=== PATIENT | male | born 1985 | race Caucasian/White ===

== ENCOUNTER 2018-07-20 17:20 | Emergency (ER) | payer OTHER ==
[~2018-07-20] VITALS: Ht 180.3 cm; Wt 65.8 kg
[~2018-07-20 17:20] MED LIST: BACTROBAN CREAM30 G1 TOP; FLEXERIL PO; HYDROCODONE-AP1 EAC6 PO; HYDROXYZINE HCL25 M1 PO; IBUPROFEN200 M1 PO; PERCOCET 5-3251 EACH PO; UNKNOWN ANTIBIOTIC
[2018-07-20 18:08] LABS: ABSOLUTE EOSINOPHILS 0.2 thou/uL (0.0-0.7); ABSOLUTE LYMPHOCYTES 1.9 thou/uL (0.8-5.3); ABSOLUTE MONOCYTES 0.6 thou/uL (0.0-1.2); ABSOLUTE NEUTROPHILS 3.6 thou/uL (1.6-8.1); BASOPHILS 0.5 %; EOSINOPHILS 3.5 %; HEMATOCRIT 46.2 % (42.0-52.0); HEMOGLOBIN 15.4 gm/dL (14.0-18.0); LYMPHOCYTES 29.6 %; MCH 31.4 pg (26.0-34.0); MCHC 33.3 g/dL (28.0-37.0); MCV 94.2 fL (80.0-100.0); MONOCYTES 9.1 %; MPV 7.6 fl. (7.2-11.1); NUCLEATED RBCS 0 /100WBC; PLATELET COUNT* 268 thou/uL (150-400); POLYS 57.3 %; RBC 4.91 mil/uL (4.50-6.00); RDW-CV 13.5 % (10.5-14.5); WBC 6.3 thou/uL (4.0-11.0)
[2018-07-20 18:18] LABS: ANION GAP 6 mmol/L (7-16); BUN 12 mg/dL (7-18); CALCIUM 9.2 mg/dL (8.5-10.1); CHLORIDE 103 mmol/L (98-107); CO2 29 mmol/L (21-32); GLUCOSE 96 mg/dL (70-99); POTASSIUM 3.9 mmol/L (3.5-5.1); SODIUM 138 mmol/L (136-145)
[2018-07-20 18:29] LABS: TROPONIN-I LEVEL <0.06 ng/mL (<0.06)
[2018-07-20 18:30] LABS: ALBUMIN 3.8 g/dL (3.4-5.0); ALKALINE PHOSPHATASE 69 U/L (46-116); LIPASE 70 U/L (73-393); NT-PRO BRAIN NAT PEPTIDE 28 pg/mL (<300); SGOT 22 U/L (15-37); SGPT 31 U/L (30-65); TOTAL BILIRUBIN 0.5 mg/dL (<0.1-1.0); TOTAL PROTEIN 7.5 g/dL (6.4-8.2)
[2018-07-20 19:10] VITALS: BP 121/62
--- NOTE | 2018-07-21 09:00 | EKG ---
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: Kathleen CELESTE : 1985 Requested By: Ham Mazariegos Order Number: [id number] MD: [place]ardo Lazo Measurements Intervals [place] Rate: 49 P: 19 MI: 146 QRS: 83 QRSD: 100 T: 57 QT: 382 QTc: 345 Interpretive Statements Sinus bradycardia Compared to ECG 02/12/2017 15:31:18 Sinus rhythm no longer present Electronically Signed On 07-21-2018 9:00:39 HEARING HEALTH TECHNICIAN by [place]ardo Lazo [email or web address] <ELECTRONICALLY SIGNED> By: Bernardo Lazo MD, [facility] 07/21/18 0900 1726 25 Bernardo Lazo MD, FACC /EPI
== END 2018-07-20 19:10 | disposition home or self-care (01) ==
LOC: M.ERS 17:20
PROVIDERS: Emergency Medicine
DX: R07.89 Other chest pain (principal); F90.9 Attention-deficit hyperactivity disorder, unspecified type; F41.9 Anxiety disorder, unspecified; F32.9 Major depressive disorder, single episode, unspecified; F17.210 Nicotine dependence, cigarettes, uncomplicated; Z88.5 Allergy status to narcotic agent

== ENCOUNTER 2018-10-06 18:25 | Emergency (ER) | payer OTHER ==
[~2018-10-06] VITALS: Ht 180.3 cm; Wt 70.3 kg
[2018-10-06 20:29] VITALS: BP 106/64
== END 2018-10-06 20:29 | disposition home or self-care (01) ==
LOC: M.ERS 18:25
DX: S62.310A Displaced fracture of base of second metacarpal bone, right hand, initial encounter for closed fracture (principal); F41.9 Anxiety disorder, unspecified; F32.9 Major depressive disorder, single episode, unspecified; F17.210 Nicotine dependence, cigarettes, uncomplicated; Z88.5 Allergy status to narcotic agent; W22.8XXA Striking against or struck by other objects, initial encounter; Y93.44 Activity, trampolining; Y92.89 Other specified places as the place of occurrence of the external cause; Y99.8 Other external cause status

== ENCOUNTER 2019-01-25 16:09 | Emergency (ER) | payer OTHER ==
[~2019-01-25] VITALS: Ht 172.7 cm; Wt 70.3 kg
[2019-01-25 16:43] LABS: ABSOLUTE EOSINOPHILS 0.2 thou/uL (0.0-0.7); ABSOLUTE LYMPHOCYTES 1.6 thou/uL (0.8-5.3); ABSOLUTE MONOCYTES 0.6 thou/uL (0.0-1.2); ABSOLUTE NEUTROPHILS 4.4 thou/uL (1.6-8.1); BASOPHILS 0.4 %; EOSINOPHILS 2.8 %; HEMOGLOBIN 14.6 gm/dL (14.0-18.0); LYMPHOCYTES 23.2 %; MCH 31.5 pg (26.0-34.0); MCV 92.6 fL (80.0-100.0); MONOCYTES 9.4 %; MPV 7.9 fl. (7.2-11.1); NUCLEATED RBCS 0 /100WBC; PLATELET COUNT* 252 thou/uL (150-400); POLYS 64.2 %; RBC 4.64 mil/uL (4.50-6.00); RDW-CV 13.9 % (10.5-14.5); WBC 6.8 thou/uL (4.0-11.0)
[2019-01-25 16:51] LABS: ANION GAP 6 mmol/L (7-16); BUN 12 mg/dL (7-18); CALCIUM 8.7 mg/dL (8.5-10.1); CHLORIDE 106 mmol/L (98-107); CO2 30 mmol/L (21-32); CREATININE 1.1 mg/dL (0.6-1.3); GLUCOSE 102 mg/dL (70-99); POTASSIUM 3.8 mmol/L (3.5-5.1); SODIUM 142 mmol/L (136-145)
[2019-01-25 17:02] LABS: ALBUMIN 3.5 g/dL (3.4-5.0); ALKALINE PHOSPHATASE 60 U/L (46-116); LIPASE 54 U/L (73-393); NT-PRO BRAIN NAT PEPTIDE 32 pg/mL (<300); SGOT 15 U/L (15-37); SGPT 20 U/L (30-65); TOTAL BILIRUBIN 0.4 mg/dL (<0.1-1.0); TOTAL PROTEIN 6.9 g/dL (6.4-8.2); TROPONIN-I LEVEL <0.06 ng/mL (<0.06)
[2019-01-25 18:45] VITALS: BP 104/40
--- NOTE | 2019-01-26 12:34 | EKG ---
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
== END 2019-01-25 18:47 ==
LOC: M.ERS 16:09
PROVIDERS: Emergency Medicine
DX: R07.89 Other chest pain (principal); R11.2 Nausea with vomiting, unspecified; F90.9 Attention-deficit hyperactivity disorder, unspecified type; F41.9 Anxiety disorder, unspecified; F32.9 Major depressive disorder, single episode, unspecified; F17.210 Nicotine dependence, cigarettes, uncomplicated; Z88.5 Allergy status to narcotic agent

== ENCOUNTER 2019-03-10 18:27 | Emergency (ER) | payer OTHER ==
[~2019-03-10] VITALS: Ht 180.3 cm; Wt 70.3 kg
[2019-03-10 18:58] LABS: ABSOLUTE EOSINOPHILS 0.2 thou/uL (0.0-0.7); ABSOLUTE LYMPHOCYTES 2.2 thou/uL (0.8-5.3); ABSOLUTE MONOCYTES 0.4 thou/uL (0.0-1.2); ABSOLUTE NEUTROPHILS 1.9 thou/uL (1.6-8.1); BASOPHILS 0.8 %; EOSINOPHILS 4.1 %; HEMATOCRIT 43.7 % (42.0-52.0); HEMOGLOBIN 14.9 gm/dL (14.0-18.0); LYMPHOCYTES 46.2 %; MCH 31.9 pg (26.0-34.0); MCHC 34.1 g/dL (28.0-37.0); MCV 93.6 fL (80.0-100.0); MONOCYTES 9.1 %; MPV 7.4 fl. (7.2-11.1); NUCLEATED RBCS 0 /100WBC; PLATELET COUNT* 295 thou/uL (150-400); POLYS 39.8 %; RBC 4.67 mil/uL (4.50-6.00); RDW-CV 13.5 % (10.5-14.5); WBC 4.8 thou/uL (4.0-11.0)
[2019-03-10 19:06] LABS: ANION GAP 9 mmol/L (7-16); BUN 7 mg/dL (7-18); CALCIUM 8.4 mg/dL (8.5-10.1); CHLORIDE 103 mmol/L (98-107); CO2 26 mmol/L (21-32); CREATININE 1.1 mg/dL (0.6-1.3); GLUCOSE 86 mg/dL (70-99); POTASSIUM 3.9 mmol/L (3.5-5.1); SODIUM 138 mmol/L (136-145)
[2019-03-10 19:07] LABS: INR 1.3
[2019-03-10 19:15] LABS: ALBUMIN 3.4 g/dL (3.4-5.0); ALKALINE PHOSPHATASE 68 U/L (46-116); LIPASE 52 U/L (73-393); SGOT 16 U/L (15-37); SGPT 16 U/L (30-65); TOTAL BILIRUBIN 0.4 mg/dL (<0.1-1.0); TOTAL PROTEIN 6.8 g/dL (6.4-8.2); TROPONIN-I LEVEL <0.06 ng/mL (<0.06)
[2019-03-10] MEDS ORDERED: VISTARIL 25 MG25 M1 PO (21:09)
[2019-03-10 21:24] VITALS: BP 102/62
--- NOTE | 2019-03-11 12:29 | EKG ---
[place] [address] ELECTROCARDIOGRAM REPORT Name: BHAVESH BAEZA JR Room: [facility]#: [id number] Admission: 03/10/19 Attend Phys: Discharge: 03/10/19 Date of : [birth year] Report #: [id number] THIS REPORT FOR: //name// [facility] ED Test Date: 2019-03-10 Test Time: 18:32:45 Pat Name: BHAVESH BAEZA Department: Room: Gender: M Director State Pharmacy: : 1985 Requested By: iD Piña Order Number: [id number] MD: Isiah Sanchez Measurements Intervals [place] Rate: 70 P: 44 NC: 144 QRS: 86 QRSD: 94 T: 53 QT: 369 QTc: 399 Interpretive Statements Sinus rhythm Baseline wander in lead(s) V4 Compared to ECG 01/25/2019 16:13:25 No significant changes Electronically Signed On 03-11-2019 12:29:15 CDT by Isiah Sanchez [email or web address] <ELECTRONICALLY SIGNED> By: Isiah Sanchez MD, [facility] 03/11/19 1229 31 31 Isiah Sanchez MD, FACC /EPI
--- NOTE | 2019-03-11 12:30 | EKG ---
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: : 1985 Requested By: Di Piña Order Number: [id number] MD: Isiah Sanchez Measurements Intervals [place] Rate: 51 P: 39 [place]: 148 QRS: 81 QRSD: 92 T: 68 QT: 417 QTc: 385 Interpretive Statements Sinus rhythm ST elev, probable normal early repol pattern Compared to ECG 01/25/2019 16:13:25 ST (T wave) deviation now present Electronically Signed On 03-11-2019 12:29:59 CDT by Isiah Sanchez [email or web address] <ELECTRONICALLY SIGNED> By: Isiah Sanchez MD, [facility] 03/11/19 1229 37 37 Isiah Sanchez MD, FAC /EPI
== END 2019-03-10 21:27 ==
LOC: M.ERS 18:27
PROVIDERS: Personal Emergency Response Attendant
DX: F41.9 Anxiety disorder, unspecified (principal); F17.210 Nicotine dependence, cigarettes, uncomplicated; F32.9 Major depressive disorder, single episode, unspecified; F90.9 Attention-deficit hyperactivity disorder, unspecified type; Z88.8 Allergy status to other drugs, medicaments and biological substances

== ENCOUNTER 2019-07-08 11:12 | Emergency (ER) | payer OTHER ==
[~2019-07-08] VITALS: Ht 180.3 cm; Wt 70.3 kg
[~2019-07-08 11:12] MED LIST changes: +VISTARIL 25 MG25 M1 PO
[2019-07-08 11:39] LABS: ABSOLUTE EOSINOPHILS 0.1 thou/uL (0.0-0.7); ABSOLUTE LYMPHOCYTES 1.6 thou/uL (0.8-5.3); ABSOLUTE MONOCYTES 0.4 thou/uL (0.0-1.2); ABSOLUTE NEUTROPHILS 1.6 thou/uL (1.6-8.1); BASOPHILS 1.1 %; EOSINOPHILS 3.8 %; HEMATOCRIT 43.7 % (42.0-52.0); HEMOGLOBIN 14.6 gm/dL (14.0-18.0); LYMPHOCYTES 41.2 %; MCH 31.5 pg (26.0-34.0); MCHC 33.4 g/dL (28.0-37.0); MCV 94.3 fL (80.0-100.0); MONOCYTES 10.9 %; MPV 7.8 fl. (7.2-11.1); NUCLEATED RBCS 0 /100WBC; PLATELET COUNT* 295 thou/uL (150-400); RBC 4.63 mil/uL (4.50-6.00); RDW-CV 13.6 % (10.5-14.5); WBC 3.8 thou/uL (4.0-11.0)
[2019-07-08 12:12] LABS: CALCIUM 7.8 mg/dL (8.5-10.1); CREATININE 0.8 mg/dL (0.6-1.3); POTASSIUM 4.2 mmol/L (3.5-5.1)
[2019-07-08 12:23] LABS: ALBUMIN 3.1 g/dL (3.4-5.0); MAGNESIUM 1.7 mg/dL (1.8-2.4); TOTAL BILIRUBIN 0.6 mg/dL (<0.1-1.0); TOTAL PROTEIN 6.9 g/dL (6.4-8.2)
[2019-07-08] MEDS ORDERED: CARAFATE1 GM PO (13:40)
[2019-07-08 13:59] VITALS: BP 105/58
--- NOTE | 2019-07-08 16:18 | EKG ---
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 07/08/19 1617 14 Bernardo Lazo MD, FACC /EPI
--- NOTE | 2019-07-08 16:20 | EKG ---
[place] [address] ELECTROCARDIOGRAM REPORT Name: BHAVESH BAEZA JR Room: [facility]#: [id number] Admission: 07/08/19 Attend Phys: Discharge: 07/08/19 Date of : [birth year] Report #: [id number] THIS REPORT FOR: //name// [facility] ED Test Date: 2019-07-08 Test Time: 13:18:22 Pat Name: BHAVESH BAEZA Department: Room: Gender: M Delinquent Notice Machine Operator: JODI : 1985 Requested By: Brian Cid Order Number: [id number] MD: [place]ardo Lazo Measurements Intervals [place] Rate: 46 P: 17 DE: 160 QRS: 82 QRSD: 96 T: 56 QT: 426 QTc: 373 Interpretive Statements Sinus bradycardia artifact noted ST elev, probable normal early repol pattern Electronically Signed On 07-08-2019 16:19:24 MOSAIC TILE MAKER by [place]ardo Lazo [email or web address] <ELECTRONICALLY SIGNED> By: Bernardo Lazo MD, [facility] 07/08/19 1619 1318 1318 Bernardo Lazo MD, FACC /EPI
== END 2019-07-08 14:00 ==
LOC: M.ERS 11:12
PROVIDERS: Emergency Medicine Emergency Medical Services
DX: R07.89 Other chest pain (principal); F17.210 Nicotine dependence, cigarettes, uncomplicated; Z88.5 Allergy status to narcotic agent

== ENCOUNTER 2020-03-23 05:20 | Emergency (ER) | payer OTHER ==
[~2020-03-23 05:20] MED LIST changes: +CARAFATE1 GM PO
== END 2020-03-23 06:41 ==
LOC: M.ERS 05:20
DX: Z02.89 Encounter for other administrative examinations (principal)

== ENCOUNTER 2020-05-13 23:32 | Emergency (ER) | payer OTHER ==
[~2020-05-13] VITALS: Ht 180.3 cm; Wt 65.8 kg
[2020-05-14] MEDS ORDERED: AMOXIL 875 MG875 M2 PO (00:40)
[2020-05-14 01:00] LABS: INFLUENZA A ANTIGEN Negative (Negative); INFLUENZA B ANTIGEN Negative (Negative)
[2020-05-14 01:15] VITALS: BP 122/72
== END 2020-05-14 01:15 ==
LOC: M.ERS 23:32
PROVIDERS: Personal Emergency Response Attendant
DX: J02.0 Streptococcal pharyngitis (principal); Z20.828 Contact with and (suspected) exposure to other viral communicable diseases; F17.210 Nicotine dependence, cigarettes, uncomplicated; Z88.5 Allergy status to narcotic agent

== ENCOUNTER 2020-09-30 16:56 | Emergency (ER) | payer OTHER ==
[~2020-09-30] VITALS: Ht 180.3 cm; Wt 70.3 kg
[~2020-09-30 16:56] MED LIST changes: +AMOXIL 875 MG875 M2 PO
[2020-09-30 17:23] LABS: ABSOLUTE BASOPHILS 0.1 thou/uL (0.0-0.2); ABSOLUTE EOSINOPHILS 0.1 thou/uL (0.0-0.7); ABSOLUTE LYMPHOCYTES 1.9 thou/uL (0.8-5.3); ABSOLUTE MONOCYTES 0.8 thou/uL (0.0-1.2); ABSOLUTE NEUTROPHILS 5.6 thou/uL (1.6-8.1); BASOPHILS 0.6 %; EOSINOPHILS 0.7 %; HEMATOCRIT 38.4 % (42.0-52.0); HEMOGLOBIN 13.4 gm/dL (14.0-18.0); LYMPHOCYTES 22.2 %; MCH 32.3 pg (26.0-34.0); MCHC 34.8 g/dL (28.0-37.0); MPV 7.3 fl. (7.2-11.1); NUCLEATED RBCS 0 /100WBC; PLATELET COUNT* 233 thou/uL (150-400); POLYS 66.5 %; RBC 4.13 mil/uL (4.50-6.00); RDW-CV 13.2 % (10.5-14.5); WBC 8.4 thou/uL (4.0-11.0)
[2020-09-30 17:32] LABS: CALCIUM 8.8 mg/dL (8.5-10.1); CREATININE 1.4 mg/dL (0.6-1.3); POTASSIUM 3.1 mmol/L (3.5-5.1)
[2020-09-30 17:37] LABS: ALBUMIN 3.8 g/dL (3.4-5.0); TOTAL BILIRUBIN 1.4 mg/dL (<0.1-1.0); TOTAL PROTEIN 7.4 g/dL (6.4-8.2)
[2020-09-30 17:56] VITALS: BP 125/74
--- NOTE | 2020-10-01 11:22 | EKG ---
[place] [address] ELECTROCARDIOGRAM REPORT Name: BHAVESH BAEZA JR Room: [facility]#: [id number] Admission: 09/30/20 Attend Phys: Discharge: 09/30/20 Date of : 87 Date of Service: 09/30/20 1659 Report #: [id number] THIS REPORT FOR: //name// [facility] ED Test Date: 2020-09-30 Test Time: 16:59:23 Pat Name: BHAVESH BAEZA Department: Room: Gender: Liner Checker: CD : 1985 Requested By: Wanda Sahu Order Number: [id number] Mikael MD: Isiah Sanchez Measurements Intervals [place] Rate: 102 P: 65 [place]: 147 QRS: 83 QRSD: 89 T: 40 QT: 332 QTc: 433 Interpretive Statements Sinus tachycardia High ST segment takeoff in right precordium Baseline wander in lead(s) V2 Compared to ECG 07/08/2019 13:18:22 Sinus bradycardia no longer present High ST segment takeoff in the right precordium persists Electronically Signed On 10-01-2020 11:21:52 CDT by Isiah Sanchez [email or web address] <ELECTRONICALLY SIGNED> By: Isiah Sanchez MD, [facility] 10/01/20 1121 1659 1659 Isiah Sanchez MD, FAC /EPI
== END 2020-09-30 17:58 | disposition home or self-care (01) ==
LOC: M.ERS 16:56
PROVIDERS: Physician Assistant
DX: F15.10 Other stimulant abuse, uncomplicated (principal); R94.5 Abnormal results of liver function studies; F17.210 Nicotine dependence, cigarettes, uncomplicated; Z88.5 Allergy status to narcotic agent

== ENCOUNTER 2021-02-14 14:30 | Emergency (ER) | payer OTHER ==
[~2021-02-14] VITALS: Ht 180.3 cm; Wt 63.5 kg
[2021-02-14 15:03] LABS: ABSOLUTE BASOPHILS 0.1 thou/uL (0.0-0.2); ABSOLUTE EOSINOPHILS 0.2 thou/uL (0.0-0.7); ABSOLUTE LYMPHOCYTES 1.6 thou/uL (0.8-5.3); ABSOLUTE MONOCYTES 0.6 thou/uL (0.0-1.2); ABSOLUTE NEUTROPHILS 6.8 thou/uL (1.6-8.1); BASOPHILS 0.6 %; HEMATOCRIT 41.3 % (42.0-52.0); HEMOGLOBIN 13.4 gm/dL (14.0-18.0); LYMPHOCYTES 17.2 %; MCH 30.6 pg (26.0-34.0); MCHC 32.4 g/dL (28.0-37.0); MCV 94.3 fL (80.0-100.0); MONOCYTES 6.3 %; MPV 7.1 fl. (7.2-11.1); NUCLEATED RBCS 0 /100WBC; PLATELET COUNT* 278 thou/uL (150-400); POLYS 73.9 %; RBC 4.38 mil/uL (4.50-6.00); RDW-CV 13.1 % (10.5-14.5); WBC 9.2 thou/uL (4.0-11.0)
--- NOTE | 2021-02-14 15:07 | EKG ---
[place] [address] ELECTROCARDIOGRAM REPORT Name: BHAVESH BAEZA JR Room: [facility]#: [id number] Admission: Attend Phys: Discharge: Date of : [birth year] Date of Service: 02/14/21 1445 Report #: [id number] THIS REPORT FOR: //name// [facility] ED Test Date: 2021-02-14 Test Time: 14:45:07 Pat Name: BHAVESH BAEZA Department: Room: Gender: Studio Sales Associate: [facility] : 1985 Requested By: Brian Cid Order Number: [id number] MD: [place]ardo Lazo Measurements Intervals [place] Rate: 78 P: 52 [place]: 150 QRS: 81 QRSD: 93 T: 51 QT: 383 QTc: 437 Interpretive Statements Sinus rhythm Compared to ECG 09/30/2020 16:59:23 Sinus tachycardia no longer present Electronically Signed On 02-14-2021 15:07:53 CDT by [place]ardo Lazo [email or web address] <ELECTRONICALLY SIGNED> By: Bernardo Lazo MD, [facility] 02/14/21 1507 1445 1445 Bernardo Lazo MD, FACC /EPI
[2021-02-14 15:11] LABS: CALCIUM 8.7 mg/dL (8.5-10.1); CREATININE 1.1 mg/dL (0.6-1.3); POTASSIUM 3.9 mmol/L (3.5-5.1)
[2021-02-14 15:16] LABS: ALBUMIN 3.9 g/dL (3.4-5.0); TOTAL BILIRUBIN 0.4 mg/dL (<0.1-1.0); TOTAL PROTEIN 7.2 g/dL (6.4-8.2)
[2021-02-14] MEDS ORDERED: ZOFRAN ODT4 MG DISSOLVE (15:50)
[2021-02-14 16:06] VITALS: BP 111/68
== END 2021-02-14 16:08 | disposition home or self-care (01) ==
LOC: M.ERS 14:30
PROVIDERS: Emergency Medicine Emergency Medical Services
DX: R55 Syncope and collapse (principal); R11.2 Nausea with vomiting, unspecified; R05 Cough; R09.89 Other specified symptoms and signs involving the circulatory and respiratory systems; F41.9 Anxiety disorder, unspecified; F32.9 Major depressive disorder, single episode, unspecified; F90.9 Attention-deficit hyperactivity disorder, unspecified type; F17.210 Nicotine dependence, cigarettes, uncomplicated; Z88.6 Allergy status to analgesic agent